=== PATIENT | female | born 1985 | race Caucasian/White ===

== ENCOUNTER 2019-03-25 05:21 | Emergency (ER) | payer OTHER ==
[2019-03-25] MEDS ORDERED: DEXAMETHASONE 10 MG/ML VIAL PO STA (05:38)
[2019-03-25] MEDS ORDERED: CHERRY SYRUP 10 ML UDC PO ONE (05:38)
--- NOTE | 2019-03-25 05:40 | ED Physician Documentation ---
PD HPI HEENT - Stated complaint Stated Complaint: SOA/SWOLLEN THROAT - Chief complaint Chief Complaint: Heent - History obtained from History obtained from: Patient - History of Present Illness Timing - onset: How many days ago (2) Timing - duration: Days (2) Timing - details: Gradual onset, Still present Location: Throat Improves: Medication Worsens: Swalllowing Associated symptoms: Congestion, Rhinorrhea, Swollen nodes, Headache, Cough Similar symptoms before: Diagnosis (tonsillitis) Recently seen: Not recently seen - Additional information Additional information: 33-year-old female with a history of enlarged tonsils has developed a sore throat and difficulty swallowing feels like she is choking on her tonsils and she is developed a low-grade fever with this. She has more minimal cough. Review of Systems Constitutional: reports: Fever, Chills, Myalgias, Fatigue Eyes: denies: Decreased vision Ears: denies: Ear pain Nose: reports: Rhinorrhea / runny nose, Congestion Throat: reports: Sore throat Cardiac: denies: Chest pain / pressure, Palpitations Respiratory: reports: Cough. denies: Dyspnea GI: denies: Vomiting PD PAST MEDICAL HISTORY - Present Medications Home Medications: Ambulatory Orders Medication Instructions Recorded Confirmed Amoxicillin 875 mg PO BID #20 tablet 03/25/19 Hydrocodone/Acetaminophen 1 - 2 each PO Q6H PRN #14 tablet 03/25/19 [Hydrocodon-Acetaminophen 5-325] - Allergies Allergies/Adverse Reactions: Allergies Allergy/AdvReac Type Severity Reaction Status Date / Time No Known Drug Allergies Allergy Verified 03/25/19 05:38 PD ED PE NORMAL - Vitals Vital signs reviewed: Yes (low grade fever tachycardia and hypertension ) - General General: No acute distress, Well developed/nourished - HEENT HEENT: Atraumatic, PERRL, EOMI, Other (The right TM is mildly inflammed the left is clear the tonsils are 2++ cyptic and with exudate. 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, No motor deficit, Normal speech Motor: Obeys Commands Verbal: Oriented - Psych Psych: Normal mood, Normal affect Results - Vitals Vitals: Vital Signs - 24 hr 03/25/19 05:28 Temperature 37.6 C H Heart Rate 118 H Respiratory 17 Rate Blood Pressure 121/81 H O2 Saturation 100 Oxygen O2 Source Room air - Labs Labs: Laboratory Tests 03/25/19 05:30 Group A Strep Rapid POSITIVE H PD MEDICAL DECISION MAKING - ED course Complexity details: reviewed results, re-evaluated patient, considered differential, d/w patient ED course: 33-year-old female with a sore throat markedly swollen tonsils has a rapid strep that is positive. She is administered Dex Methasone 10 mg orally and we will place her on some amoxicillin. She will need a note for 3 days for work. Departure - Departure Disposition: Home, Self Care Clinical Impression: Streptococcal tonsillopharyngitis Condition: Stable Instructions: ED Strep Pharyngitis Conf Follow-Up: ERIN BERRIOS [Primary Care Provider] - Prescriptions: Amoxicillin 875 mg PO BID #20 tablet Hydrocodone/Acetaminophen [Hydrocodon-Acetaminophen 5-325] 1 - 2 each PO Q6H PRN #14 tablet PRN Reason: pain Forms: Activity restrictions
[2019-03-25 06:39] VITALS: BP 96/64
== END 2019-03-25 06:39 | disposition home or self-care (01) ==
LOC: ED 05:21
DX: J03.00 Acute streptococcal tonsillitis, unspecified (principal)
CPT/HCPCS: 87430; 99283; 99284; A9270

== ENCOUNTER 2019-05-24 09:51 | Emergency (ER) | payer OTHER ==
[2019-05-24 12:35] VITALS: BP 121/80
[2019-05-24] MEDS ORDERED: IBUPROFEN 800 MG TABLET PO STA (12:58)
[2019-05-24] MEDS ORDERED: CYCLOBENZAPRINE 10 MG TABLET PO STA (12:58)
--- NOTE | 2019-05-24 12:58 | ED Physician Documentation ---
PD HPI BACK INJURY - Stated complaint Stated Complaint: BACK PX - History obtained from History obtained from: Patient, Family - History of Present Illness Location: Left, Other (mid/lower) Type of injury: Fall Where injury occurred: Home Timing - onset: Last night Timing - duration: Days (1) Timing - details: Gradual onset Pain level max: 6 Pain level now: 5 Quality: Pain, Aching Improved by: Rest Worsened by: Moving, Palpating Associated symptoms: No: Fever, Weakness, Numbness, Incontinent of urine, Unable to urinate, Hematuria, Incontinent of stool Contributing factors: No: Anticoagulated Recently seen: Not recently seen - Additional information Additional information: Patient states that she was in her slippers when she slid down the stairs, injuring her back on a metal gate. No numbness or tingling. No loss of bowel or bladder control. Patient did not take anything prior to coming in. 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: section - Present Medications Home Medications: Ambulatory Orders Medication Instructions Recorded Confirmed Amoxicillin 875 mg PO BID #20 tablet 03/25/19 Hydrocodone/Acetaminophen 1 - 2 each PO Q6H PRN #14 tablet 03/25/19 [Hydrocodon-Acetaminophen 5-325] Cyclobenzaprine [Flexeril] 10 mg PO TID PRN #20 tablet 05/24/19 Meloxicam [Mobic] 15 mg PO DAILY PRN #20 tablet 05/24/19 - Allergies Allergies/Adverse Reactions: Allergies Allergy/AdvReac Type Severity Reaction Status Date / Time No Known Drug Allergies Allergy Verified 05/24/19 10:10 - Social History Does the pt smoke?: No Smoking Status: Never smoker Does the pt drink ETOH?: No Does the pt have substance abuse?: No - Immunizations Immunizations are current?: Yes - POLST Patient has POLST: No PD ED PE NORMAL - Vitals Vital signs reviewed: Yes - General General: Alert and oriented X 3, No acute distress, Well developed/nourished - HEENT HEENT: Moist mucous membranes - Neck Neck: Supple, no meningeal sign, No bony TTP - Cardiac Cardiac: RRR - Respiratory Respiratory: No respiratory distress, Clear bilaterally - Abdomen Abdomen: Soft, Non tender, Non distended - Back Back: No spinal TTP, Other (No midline tenderness to palpation. No step-off or deformity. No crepitus. No ecchymosis. She is tender to palpation over the posterior aspect of the left posterior ribs, approximately 10,11 and 12.) - Derm Derm: Warm and dry - Extremities Extremities: Normal ROM s pain, Other (Normal bilateral lower extremity patellar and ankle jerk reflexes. Normal great toe extension bilaterally. no saddle anesthesia) - Neuro Neuro: Alert and oriented X 3, No motor deficit, No sensory deficit - Psych Psych: Normal mood, Normal affect Results - Vitals Vitals: Vital Signs - 24 hr 05/24/19 05/24/19 10:10 12:34 Temperature 37 C 36.7 C Heart Rate 98 88 Respiratory 17 18 Rate Blood Pressure 136/96 H 121/80 O2 Saturation 99 98 Oxygen O2 Source Room air PD MEDICAL DECISION MAKING - ED course Complexity details: re-evaluated patient, considered differential (No cauda equina, no spinal epidural abscess, no fracture, no aortic dissection or evidence of aneursym rupture), d/w patient, d/w family ED course: Patient appears to have tenderness over the left posterior ribs. Possible rib contusion versus fracture. We discussed x-rays, will hold at this time and will perform supportive care instead. We will see how she progresses. No evidence of internal injury including spleen or kidney injury. Abdomen is soft, nontender nondistended. No bruising. Ambulating well. Patient counseled regarding signs and symptoms for which I believe and urgent re-evaluation would be necessary. Patient with good understanding of and agreement to plan and is comfortable going home at this time This document was made in part using voice recognition software. While efforts are made to proofread this document, sound alike and grammatical errors may occur. Departure - Departure Disposition: 01 Home, Self Care Clinical Impression: Back contusion Qualifiers: Encounter type: initial encounter Laterality: left Qualified Code(s): S20.222A - Contusion of left back wall of thorax, initial encounter Condition: Good Instructions: ED Contusion Back Follow-Up: ERIN BERRIOS [Primary Care Provider] - Within 1 week Prescriptions: Cyclobenzaprine [Flexeril] 10 mg PO TID PRN #20 tablet PRN Reason: Spasms Meloxicam [Mobic] 15 mg PO DAILY PRN #20 tablet PRN Reason: pain Comments: Return if you worsen. Follow-up with your doctor for further care. If you are not proving as expected, we can perform x-rays at that time.Do not drive or operate heavy machinery while taking the Flexeril. Forms: Activity restrictions
== END 2019-05-24 13:10 | disposition home or self-care (01) ==
LOC: ED 09:51
DX: S20.222A Contusion of left back wall of thorax, initial encounter (principal); W10.8XXA Fall (on) (from) other stairs and steps, initial encounter; Y93.89 Activity, other specified; Y92.009 Unspecified place in unspecified non-institutional (private) residence as the place of occurrence of the external cause
CPT/HCPCS: 99282; 99284; A9270

== ENCOUNTER 2019-08-18 14:27 | Emergency (ER) | payer OTHER ==
[2019-08-18 14:47] LABS: BASOPHILS # (AUTO) 0.1 10^3/uL (0.0-0.1); BASOPHILS % (AUTO) 0.4 %; EOSINOPHILS % (AUTO) 0.1 %; HGB - HEMOGLOBIN 13.5 g/dL (12.0-16.0); LYMPHOCYTES # (AUTO) 1.5 10^3/uL (1.5-3.5); MEAN CORPUSCULAR HEMOGLOBIN 28.5 pg (27.0-31.0); MEAN CORPUSCULAR HGB CONC 32.6 g/dL (32.0-36.0); MEAN CORPUSCULAR VOLUME 87.5 fL (81.0-99.0); MEAN PLATELET VOLUME 8.9 fL (7.9-10.8); MONOCYTES # (AUTO) 0.8 10^3/uL (0.0-1.0); MONOCYTES % (AUTO) 5.2 %; NEUTROPHILS # (AUTO) 12.9 10^3/uL (1.5-6.6); NEUTROPHILS % (AUTO) 83.8 %; PLT - PLATELET COUNT 482 10^3/uL (130-450); RED BLOOD COUNT 4.73 10^6/uL (4.20-5.40); RED CELL DISTRIBUTION WIDTH 13.1 % (12.0-15.0); WHITE BLOOD COUNT 15.4 x10^3/uL (4.8-10.8)
[2019-08-18 15:01] LABS: ALBUMIN 4.5 g/dL (3.2-5.5); CALCIUM 9.9 mg/dL (8.5-10.3); CREATININE 0.5 mg/dL (0.4-1.0); TOTAL PROTEIN 8.9 g/dL (6.7-8.2)
[2019-08-18] MEDS ORDERED: LIDOCAINE VISCOUS 2% 100 ML BOTTLE MM STA (15:23)
[2019-08-18] MEDS ORDERED: MAG HYDROX/AL HYDROX/SIMETH 30 ML UDC PO STA ×2 (15:25→17:09)
[2019-08-18 15:28] LABS: BILIRUBIN,URINE NEGATIVE (NEGATIVE); GLUCOSE, URINE (UA) NEGATIVE (NEGATIVE); KETONES,URINE (UA) 15 mg/dL (NEGATIVE); LEUKOCYTE ESTERASE, URINE NEGATIVE (NEGATIVE); NITRITE,URINE NEGATIVE (NEGATIVE); OCCULT BLOOD,URINE TRACE-LYSE (NEGATIVE); PROTEIN,URINE NEGATIVE (NEGATIVE); UROBILINOGEN,URINE 0.2 (NORMAL) E.U./dL (NORMAL)
[2019-08-18] MEDS ORDERED: LIDOCAINE VISCOUS 2% 15 ML UDC MM STA ×2 (15:34→17:08)
[2019-08-18 15:35] LABS: CLARITY,URINE CLEAR (CLEAR)
[2019-08-18] MEDS ORDERED: PANTOPRAZOLE 40 MG VIAL IV STA (15:41)
[2019-08-18 15:44] LABS: HCG UR QUAL NEGATIVE
--- NOTE | 2019-08-18 15:47 | ED Physician Documentation ---
PD HPI ABD PAIN - Stated complaint Stated Complaint: MID ABD PX, N/V - Chief complaint Chief Complaint: Abd Pain - History obtained from History obtained from: Patient (34-year-old female comes in today with chief complaint of unresolved recurring epigastric pain/heartburn for one week with nausea and vomiting for 2 days. She has continued to take her omeprazole daily as prescribed, taking Tums as well with little to no relief. Pain is worse after she eats and then resolves shortly thereafter within an hour. Her last food intake was roughly 24 hours ago, she still has the pain in the epigastric region. Last bowel movement was this morning, she states it was normal though less volume. She does have a positive past medical history of having pretty severe heartburn, which she is being followed by her PCP for this.) Review of Systems Constitutional: reports: Chills. denies: Fever Eyes: reports: Reviewed and negative Ears: reports: Reviewed and negative Nose: reports: Reviewed and negative Throat: reports: Reviewed and negative Cardiac: denies: Chest pain / pressure, Palpitations Respiratory: denies: Dyspnea, Cough, Wheezing GI: reports: Abdominal Pain, Nausea, Vomiting, Diarrhea (Roughly 1 week ago). 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 - Present Medications Home Medications: Ambulatory Orders Medication Instructions Recorded Confirmed Amoxicillin 875 mg PO BID #20 tablet 03/25/19 Hydrocodone/Acetaminophen 1 - 2 each PO Q6H PRN #14 tablet 03/25/19 [Hydrocodon-Acetaminophen 5-325] Cyclobenzaprine [Flexeril] 10 mg PO TID PRN #20 tablet 05/24/19 Meloxicam [Mobic] 15 mg PO DAILY PRN #20 tablet 05/24/19 - Allergies Allergies/Adverse Reactions: Allergies Allergy/AdvReac Type Severity Reaction Status Date / Time No Known Drug Allergies Allergy Verified 08/18/19 14:31 - Social History Does the pt smoke?: No Smoking Status: Never smoker Does the pt drink ETOH?: No Does the pt have substance abuse?: No - Immunizations Immunizations are current?: Yes - POLST Patient has POLST: No PD ED PE NORMAL - General General: Alert and oriented X 3, Well developed/nourished - HEENT HEENT: Atraumatic, PERRL, EOMI, Ears normal, Moist mucous membranes, Pharynx benign - Neck Neck: No adenopathy - Cardiac Cardiac: RRR, No murmur - Respiratory Respiratory: No respiratory distress, Clear bilaterally - Abdomen Abdomen: Soft, Non distended, No organomegaly, Other (Hypoactive bowel sounds) - Back Back: No CVA TTP - Derm Derm: Normal color, Warm and dry, No rash PD ED PE EXPANDED - Abdomen Abdomen: Decreased BS, Epigastric. No: Distended, Rebound, Guarding, Mass, Hepatomegaly, Pulsatile Results - Vitals Vitals: Vital Signs - 24 hr 08/18/19 08/18/19 14:31 14:35 Temperature 36.5 C 36.8 C Heart Rate 116 H 89 Respiratory 14 16 Rate Blood Pressure 136/83 H 128/82 H O2 Saturation 98 99 Oxygen O2 Source Room air - Labs Labs: Laboratory Tests 08/18/19 08/18/19 08/18/19 14:35 14:35 15:20 WBC 15.4 H RBC 4.73 Hgb 13.5 Hct 41.4 MCV 87.5 MCH 28.5 MCHC 32.6 RDW 13.1 Plt Count 482 H MPV 8.9 Neut # (Auto) 12.9 H Lymph # (Auto) 1.5 Petroleum # (Auto) 0.8 Eos # (Auto) 0.0 Baso # (Auto) 0.1 Absolute Nucleated RBC 0.00 Nucleated RBC % 0.0 Sodium 136 Potassium 3.8 Chloride 98 L Carbon Dioxide 26 Anion Gap 12.0 BUN 8 Creatinine 0.5 Estimated GFR (MDRD) 140 Glucose 110 H Calcium 9.9 Total Bilirubin 1.0 AST 18 ALT 21 Alkaline Phosphatase 74 Total Protein 8.9 H Albumin 4.5 Globulin 4.4 H Albumin/Globulin Ratio 1.0 Lipase 24 Urine Color YELLOW Urine Clarity CLEAR Urine pH 6.0 Ur Specific [place] 1.020 Urine Protein NEGATIVE Urine Glucose (UA) NEGATIVE Urine Ketones 15 H Urine Occult Blood TRACE-LYSE Urine Nitrite NEGATIVE Urine Bilirubin NEGATIVE Urine Urobilinogen 0.2 (NORMAL) Ur Leukocyte Esterase NEGATIVE Ur Microscopic Review NOT INDICATED Urine Culture Comments NOT INDICATED Urine HCG, Qual 08/18/19 15:20 WBC RBC Hgb Hct MCV MCH MCHC RDW Plt Count MPV Neut # (Auto) Lymph # (Auto) Petroleum # (Auto) Eos # (Auto) Baso # (Auto) Absolute Nucleated RBC Nucleated RBC % Sodium Potassium Chloride Carbon Dioxide Anion Gap BUN Creatinine Estimated GFR (MDRD) Glucose Calcium Total Bilirubin AST ALT Alkaline Phosphatase Total Protein Albumin Globulin Albumin/Globulin Ratio Lipase Urine Color Urine Clarity Urine pH Ur Specific [place] 1.020 Urine Protein Urine Glucose (UA) Urine Ketones Urine Occult Blood Urine Nitrite Urine Bilirubin Urine Urobilinogen Ur Leukocyte Esterase Ur Microscopic Review Urine Culture Comments Urine HCG, Qual NEGATIVE PD MEDICAL DECISION MAKING - ED course Complexity details: reviewed results (Patient is gastric pain improved after the second dose of viscous lidocaine/Maalox/Carafate.), re-evaluated patient, d/w patient Departure - Departure Disposition: 01 Home, Self Care Clinical Impression: Gastroesophageal reflux disease Qualifiers: Esophagitis presence: esophagitis presence not specified Qualified Code(s): K21.9 - Gastro-esophageal reflux disease without esophagitis Condition: Good Instructions: ED GERD, ED Gastritis Comments: Medications we gave you today in the ER that helped him the most with the Maalox, and the Carafate. He can pick these up at the store, and take as directed. I also want you to take your omeprazole prescription once in the morning and once in the evening. I want you to follow-up with your PCP within a week for further evaluation to make sure that you continue to improve. Stick with a bland diet for the next day or 2, and slowly reintroduce foods to see if there are any triggering foods causing his pain. If you start to vomit blood or have dark tarry stools you may try to get into see your PCP right away or you may return to the ER for further evaluation.
[2019-08-18] MEDS ORDERED: SUCRALFATE 1 GM/10 ML UDC PO STA (17:06)
[2019-08-18 19:20] VITALS: BP 124/78
== END 2019-08-18 19:25 | disposition home or self-care (01) ==
LOC: ED 14:27
DX: K21.9 Gastro-esophageal reflux disease without esophagitis (principal)
CPT/HCPCS: 36415; 80053; 81003; 81025; 83690; 85025; 96374; 99283; 99284; A9270; 81001; 87086

== ENCOUNTER 2019-08-20 12:26 | Day surgery (SDC) | payer OTHER ==
[2019-08-20] MEDS ORDERED: ONDANSETRON 4 MG/2 ML VIAL IVP STA ×2 (12:51→20:04)
[2019-08-20] MEDS ORDERED: SODIUM CHLORIDE 0.9% 1,000 ML IV ONE (12:51)
[2019-08-20] MEDS ORDERED: HYDROmorphone 1 MG/ML SYRINGE IVP STA (12:51)
--- NOTE | 2019-08-20 12:54 | ED Physician Documentation ---
History of Present Illness - Stated complaint Stated Complaint: R SIDE PX - Chief complaint Chief Complaint: Abd Pain - History obtained from History obtained from: Patient - History of Present Illness Timing: How many days ago (2) Pain level max: 8 Pain level now: 8 Improved by: rest Worsened by: moving, breathing, eating - Additonal information Additional information: 34-year-old female presents to the emergency department stating that she has had right upper quadrant abdominal pain and epigastric pain for the past 2 days. Seen here 2 days ago for same, diagnosed with possible GERD and sent home. Since that time she has had nausea and continuous right upper quadrant pain. States hard to take a deep breath now. Worse with palpation and movement. Denies any possibility of . She is not breast-feeding or trying to become . 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 - Present Medications Home Medications: Ambulatory Orders Medication Instructions Recorded Confirmed Amoxicillin 875 mg PO BID #20 tablet 03/25/19 Hydrocodone/Acetaminophen 1 - 2 each PO Q6H PRN #14 tablet 03/25/19 [Hydrocodon-Acetaminophen 5-325] Cyclobenzaprine [Flexeril] 10 mg PO TID PRN #20 tablet 05/24/19 Meloxicam [Mobic] 15 mg PO DAILY PRN #20 tablet 05/24/19 - Allergies Allergies/Adverse Reactions: Allergies Allergy/AdvReac Type Severity Reaction Status Date / Time No Known Drug Allergies Allergy Verified 08/18/19 14:31 - Social History Does the pt smoke?: No Smoking Status: Never smoker Does the pt drink ETOH?: No Does the pt have substance abuse?: No - Immunizations Immunizations are current?: Yes - POLST Patient has POLST: No PD ED PE NORMAL - Vitals Vital signs reviewed: Yes - General General: Alert and oriented X 3, No acute distress - HEENT HEENT: Moist mucous membranes - Neck Neck: Supple, no meningeal sign - Cardiac Cardiac: RRR - Respiratory Respiratory: No respiratory distress, Clear bilaterally - Abdomen Abdomen: Other (Tender to palpation right upper quadrant. Positive Ta sign.) - Back Back: No CVA TTP - Derm Derm: Warm and dry, No rash - Extremities Extremities: No edema - Neuro Neuro: Alert and oriented X 3 - Psych Psych: Normal mood, Normal affect Results - Vitals Vitals: Vital Signs - 24 hr 08/20/19 08/20/19 08/20/19 12:31 14:00 16:14 Temperature 36.9 C 36.9 C Heart Rate 118 H 90 104 H Respiratory 16 16 16 Rate Blood Pressure 119/78 117/75 117/84 H O2 Saturation 100 98 100 Oxygen O2 Source Room air - Labs Labs: Laboratory Tests 08/20/19 08/20/19 08/20/19 12:45 12:45 12:45 WBC 13.3 H RBC 4.55 Hgb 13.0 Hct 40.3 MCV 88.6 MCH 28.6 MCHC 32.3 RDW 13.1 Plt Count 481 H MPV 9.0 Neut # (Auto) 10.0 H Lymph # (Auto) 2.1 [place] # (Auto) 0.9 Eos # (Auto) 0.1 Baso # (Auto) 0.1 Absolute Nucleated RBC 0.00 Nucleated RBC % 0.0 Sodium 133 L Potassium 3.2 L Chloride 95 L Carbon Dioxide 27 Anion Gap 11.0 BUN 14 Creatinine 0.5 Estimated GFR (MDRD) 140 Glucose 93 Calcium 9.2 Total Bilirubin 1.1 H AST 29 ALT 26 Alkaline Phosphatase 78 Total Protein 8.6 H Albumin 4.3 Globulin 4.3 H Albumin/Globulin Ratio 1.0 Lipase 32 Urine Color YELLOW Urine Clarity CLEAR Urine pH 6.5 Ur Specific [place] 1.010 Urine Protein NEGATIVE Urine Glucose (UA) NEGATIVE Urine Ketones NEGATIVE Urine Occult Blood TRACE-INTA Urine Nitrite NEGATIVE Urine Bilirubin NEGATIVE Urine Urobilinogen 0.2 (NORMAL) Ur Leukocyte Esterase NEGATIVE Ur Microscopic Review NOT INDICATED Urine Culture Comments NOT INDICATED - Rads (name of study) RUQ US Radiology: Prelim report reviewed, EMP read contemporaneously, See rad report (1. Gallstones and chronic cholecystitis. 2. Negative for biliary obstruction. 3. Liver steatosis. ) PD MEDICAL DECISION MAKING - ED course Complexity details: reviewed results, re-evaluated patient, considered different ial, d/w patient, d/w continuous improvement consultant (D/w Dr. Wiley (surgery @[id number]) will plan on OR. ) ED course: Patient with acute on chronic cholecystitis. Elevated white blood cell count. Continuous pain and nausea. Gallstone lodged in the gallbladder neck. Discussed the case with general surgery, Dr. Wiley who contacted the OR and because of the coronavirus they want to see if this is an elective case or not. CNO was contacted and the OR will take the patient to the OR if the surgeon decides it is necessary. Recontacted Dr. Wiley at 1820 and he will come evaluate the patient. 2nd dose of zosyn given at 1830. Pt signed out to Dr. Catalan awaiting final dispo. Departure - Departure Disposition: ED Transfer to [facility] Clinical Impression: Acute cholecystitis, Gallstone (impacted) Condition: Stable
[2019-08-20] MEDS ORDERED: PIPERACILLIN/TAZOBACTAM 3.375 GM in SODIUM CHLORIDE 0.9% MINIBAG 100 ML IV STA ×2 (12:56→18:17)
[2019-08-20 12:57] LABS: BASOPHILS # (AUTO) 0.1 10^3/uL (0.0-0.1); BASOPHILS % (AUTO) 0.6 %; EOSINOPHILS # (AUTO) 0.1 10^3/uL (0.0-0.7); EOSINOPHILS % (AUTO) 1.1 %; LYMPHOCYTES # (AUTO) 2.1 10^3/uL (1.5-3.5); LYMPHOCYTES % (AUTO) 15.6 %; MEAN CORPUSCULAR HEMOGLOBIN 28.6 pg (27.0-31.0); MEAN CORPUSCULAR HGB CONC 32.3 g/dL (32.0-36.0); MEAN CORPUSCULAR VOLUME 88.6 fL (81.0-99.0); MONOCYTES # (AUTO) 0.9 10^3/uL (0.0-1.0); NEUTROPHILS % (AUTO) 75.1 %; PLT - PLATELET COUNT 481 10^3/uL (130-450); RED BLOOD COUNT 4.55 10^6/uL (4.20-5.40); RED CELL DISTRIBUTION WIDTH 13.1 % (12.0-15.0); WHITE BLOOD COUNT 13.3 x10^3/uL (4.8-10.8)
[2019-08-20 13:00] LABS: BILIRUBIN,URINE NEGATIVE (NEGATIVE); GLUCOSE, URINE (UA) NEGATIVE (NEGATIVE); KETONES,URINE (UA) NEGATIVE (NEGATIVE); LEUKOCYTE ESTERASE, URINE NEGATIVE (NEGATIVE); NITRITE,URINE NEGATIVE (NEGATIVE); OCCULT BLOOD,URINE TRACE-INTA (NEGATIVE); PH,URINE 6.5 PH (5.0-7.5); PROTEIN,URINE NEGATIVE (NEGATIVE); UROBILINOGEN,URINE 0.2 (NORMAL) E.U./dL (NORMAL)
[2019-08-20 13:04] LABS: CLARITY,URINE CLEAR (CLEAR)
[2019-08-20 13:09] LABS: ALBUMIN 4.3 g/dL (3.2-5.5); BILIRUBIN,TOTAL 1.1 mg/dL (0.2-1.0); CALCIUM 9.2 mg/dL (8.5-10.3); CREATININE 0.5 mg/dL (0.4-1.0); TOTAL PROTEIN 8.6 g/dL (6.7-8.2)
[2019-08-20] MEDS ORDERED: fentaNYL 100 MCG/2 ML VIAL IVP STA ×2 (13:51→18:16)
--- NOTE | 2019-08-20 16:01 | Ultrasound Report ---
Reason: RUQ pain Procedure Date: 08/20/2019 Accession Number: [id number] / [id number] Procedure: US - Abdomen Limited CPT Code: Final Report FULL RESULT: EXAM: ABDOMEN ULTRASOUND LIMITED, RIGHT UPPER QUADRANT EXAM DATE: 08/20/2019 03:48 PM. CLINICAL HISTORY: Right upper quadrant pain radiating to the back since 08/19/2019. COMPARISON: None. TECHNIQUE: Real-time scanning was performed with static images obtained. FINDINGS: Liver: Increased liver echogenicity is consistent with fatty infiltration. 15.6 cm. Main portal vein flow: Hepatopetal. Gallbladder: Gallstone 1 cm stuck at the gallbladder neck. Mobile 1.3 cm gallstone. Gallbladder wall thickness 8 mm. Gallbladder wall hyperemia. Probable 9 mm gallstone gallbladder fundus. Negative for pericholecystic fluid. 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 Probable diffuse gallbladder wall R[place]ky sinuses. There is no sonographic Ta's sign elicited. Biliary System: CBD measures 5.5 mm. No intrahepatic or extrahepatic ductal dilatation. Other: Visualized pancreas is negative for focal mass or pancreatic duct dilatation. Right kidney is negative for hydronephrosis. IMPRESSION: 1. Gallstones and chronic cholecystitis. 2. Negative for biliary obstruction. 3. Liver steatosis. RADIA
--- NOTE | 2019-08-20 19:37 | HISTORY & PHYSICAL EXAMINATION ---
Chief Complaint - Chief Complaint Chief Complaint: right upper quadrant pain x 3 weeks. 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 : positive: None HEENT: positive: None Psych: positive: None Musculoskeletal: positive: None Derm: positive: None MRSA Hx?: No - Past Surgical History /FINANCIAL INSTITUTION TREASURER: positive: section Social & Family Hx - Social History Does the pt smoke?: No Smoking Status: Never smoker Does the pt drink ETOH?: No Does the pt have substance abuse?: No - POLST Patient has POLST: No Meds/Allgy - Home Medications Home Medications: Ambulatory Orders Medication Instructions Recorded Confirmed Amoxicillin 875 mg PO BID #20 tablet 03/25/19 Hydrocodone/Acetaminophen 1 - 2 each PO Q6H PRN #14 tablet 03/25/19 [Hydrocodon-Acetaminophen 5-325] Cyclobenzaprine [Flexeril] 10 mg PO TID PRN #20 tablet 05/24/19 Meloxicam [Mobic] 15 mg PO DAILY PRN #20 tablet 05/24/19 - Allergies Allergies/Adverse Reactions: Allergies Allergy/AdvReac Type Severity Reaction Status Date / Time No Known Drug Allergies Allergy Verified 08/18/19 14:31 Review of Systems - Other Findings Other Findings: 10 pt ros otherwise neg Exam - Vital Signs Vital Signs: Vital Signs x48h Temp Pulse Resp BP Pulse Ox 08/20/19 18:21 72 16 114/81 H 08/20/19 16:14 36.9 C 104 H 16 117/84 H 100 08/20/19 14:00 90 16 117/75 98 08/20/19 12:31 36.9 C 118 H 16 119/78 100 - Physical Exam General Appearance: positive: No acute distress Eyes Bilateral: positive: Normal inspection, PERRL, EOMI Neck: positive: Nml inspection, No JVD, Trachea midline Respiratory: positive: No respiratory distress, Breath sounds nml Cardiovascular: positive: Regular rate & rhythm Abdomen: positive: Tenderness (ruq tenderness) Skin: positive: Color nml Extremities: positive: No pedal edema Neurologic/Psychiatric: positive: Oriented x3 Results - Lab Results Fish Bones: 08/20/19 12:45 08/20/19 12:45 Other Lab Results: Lab Results x24hrs 08/20/19 08/20/19 08/20/19 Range/Units 12:45 12:45 12:45 WBC 13.3 H (4.8-10.8) x10^3/uL RBC 4.55 (4.20-5.40) 10^6/uL Hgb 13.0 (12.0-16.0) g/dL Hct 40.3 (37.0-47.0) % MCV 88.6 (81.0-99.0) fL MCH 28.6 (27.0-31.0) pg MCHC 32.3 (32.0-36.0) g/dL RDW 13.1 (12.0-15.0) % Plt Count 481 H (130-450) 10^3/uL MPV 9.0 (7.9-10.8) fL Neut # (Auto) 10.0 H (1.5-6.6) 10^3/uL Lymph # (Auto) 2.1 (1.5-3.5) 10^3/uL [place] # (Auto) 0.9 (0.0-1.0) 10^3/uL Eos # (Auto) 0.1 (0.0-0.7) 10^3/uL Baso # (Auto) 0.1 (0.0-0.1) 10^3/uL Absolute Nucleated RBC 0.00 x10^3/uL Nucleated RBC % 0.0 /100WBC Sodium 133 L (135-145) mmol/L Potassium 3.2 L (3.5-5.0) mmol/L Chloride 95 L (101-111) mmol/L Carbon Dioxide 27 (21-32) mmol/L Anion Gap 11.0 (6-13) BUN 14 (6-20) mg/dL Creatinine 0.5 (0.4-1.0) mg/dL Estimated GFR (MDRD) 140 (>89) Glucose 93 (70-100) mg/dL Calcium 9.2 (8.5-10.3) mg/dL Total Bilirubin 1.1 H (0.2-1.0) mg/dL AST 29 (10-42) IU/L ALT 26 (10-60) IU/L Alkaline Phosphatase 78 (42-121) IU/L Total Protein 8.6 H (6.7-8.2) g/dL Albumin 4.3 (3.2-5.5) g/dL Globulin 4.3 H (2.1-4.2) g/dL Albumin/Globulin Ratio 1.0 (1.0-2.2) Lipase 32 (22-51) U/L Urine Color YELLOW Urine Clarity CLEAR (CLEAR) Urine pH 6.5 (5.0-7.5) PH Ur Specific [place] 1.010 (1.002-1.030) Urine Protein NEGATIVE (NEGATIVE) mg/dL Urine Glucose (UA) NEGATIVE (NEGATIVE) mg/dL Urine Ketones NEGATIVE (NEGATIVE) mg/dL Urine Occult Blood TRACE-INTA (NEGATIVE) Urine Nitrite NEGATIVE (NEGATIVE) Urine Bilirubin NEGATIVE (NEGATIVE) Urine Urobilinogen 0.2 (NORMAL) (NORMAL) E.U./dL Ur Leukocyte Esterase NEGATIVE (NEGATIVE) Ur Microscopic Review NOT INDICATED Urine Culture Comments NOT INDICATED Impression/Plan - Problem List Problem List: classic chronic cholecystitis x 3 weeks and more significant pain with obstructed inflamed gallbladder last 2 days. n/v last 2 days. not improving Assessment/Plan - Assessment/Plan Assessment: cholecystitis plan lap yobani parq held and consent obtained Plan: lap yobani. parq held and consent obtained
[2019-08-20] MEDS ORDERED: SODIUM CHLORIDE FLUSH 0.9% 10 ML SYRINGE IVP PRN (19:58)
[2019-08-20] MEDS ORDERED: ceFAZolin 2 GM in SODIUM CHLORIDE 0.9% 100ML 100 ML IV ONE (19:58)
[2019-08-20] MEDS ORDERED: ceFAZolin 2 GM in SODIUM CHLORIDE 0.9% 100ML 100 ML IV STA (20:21)
[2019-08-20] MEDS ORDERED: ONDANSETRON 4 MG/2 ML VIAL IVP PRN (20:22)
--- NOTE | 2019-08-20 20:23 | ED Physician Documentation ---
ED Addendum - Addendum Addendum: 08/20/19 20:23 Patient signed out to me by Dr. Viramontes, briefly 34-year-old woman with cholecystitis. Being seen by the surgeon pending the OR. Surgeon saw her and plans to take her to the OR in the morning. I wrote for her scheduled and as needed meds overnight.
[2019-08-20] MEDS: LACTATED RINGERS 1,000 ML IV SCH (20:33)
[2019-08-20] MEDS: fentaNYL 100 MCG/2 ML VIAL IVP PRN (20:42)
[2019-08-21] MEDS: fentaNYL 100 MCG/2 ML VIAL IVP PRN ×3 (00:55→05:42)
[2019-08-21] MEDS ORDERED: SODIUM CHLORIDE FLUSH 0.9% 10 ML SYRINGE IVP SCH (01:00)
[2019-08-21] MEDS: LACTATED RINGERS 1,000 ML IV SCH (01:23)
--- NOTE | 2019-08-21 07:37 | ANESTHESIA ---
Pre-Anesthesia VS, & Labs - Diagnosis Acute cholecystitis - Procedure Laparoscopic cholecystectomy Vital Signs: Temp Pulse Resp BP Pulse Ox 36.7 C 84 14 105/93 H 98 08/21/19 00:50 08/21/19 07:10 08/21/19 07:10 08/21/19 07:10 08/21/19 07:10 Height 5 ft 4 in Weight (kg) 74.843 kg Body Mass Index 28.3 - NPO >8 hours - Is Patient ?: No - Lab Results Current Lab Results: Laboratory Tests 08/20/19 12:45: Sodium 133 L, Potassium 3.2 L, Chloride 95 L, Carbon Dioxide 27, Anion Gap 11.0, BUN 14, Creatinine 0.5, Estimated GFR (MDRD) 140, Glucose 93, Calcium 9.2, Total Bilirubin 1.1 H, AST 29, ALT 26, Alkaline Phosphatase 78, Total Protein 8.6 H, Albumin 4.3, Globulin 4.3 H, Albumin/Globulin Ratio 1.0, Lipase 32 08/20/19 12:45: WBC 13.3 H, RBC 4.55, Hgb 13.0, Hct 40.3, MCV 88.6, MCH 28.6, MCHC 32.3, RDW 13.1, Plt Count 481 H, MPV 9.0, Neut # (Auto) 10.0 H, Lymph # (Auto) 2.1, [place] # (Auto) 0.9, Eos # (Auto) 0.1, Baso # (Auto) 0.1, Absolute Nucleated RBC 0.00, Nucleated RBC % 0.0 Lab results reviewed: Yes Fish Bones: 08/20/19 12:45 08/20/19 12:45 Home Medications and Allergies Active Medications Fentanyl (Fentanyl) 75 mcg IVP Q2H PRN PRN Reason: PAIN Last Admin: 08/21/19 05:42 Dose: 75 mcg Lactated Ringer's (Lr) 1,000 mls @ 125 mls/hr IV .Q8H FLORENTIN Last Admin: 08/21/19 01:23 Dose: 125 mls/hr Ondansetron HCl (Zofran Inj) 4 mg IVP Q6H PRN PRN Reason: Nausea / Vomiting Last Admin: 08/21/19 01:04 Dose: 4 mg Sodium Chloride (Normal Saline Flush 0.9%) 10 ml IVP 0100,0900,1700 FLORENTIN Last Admin: 08/21/19 04:00 Dose: Not Given Sodium Chloride (Normal Saline Flush 0.9%) 10 ml IVP PRN PRN PRN Reason: NEEDED PER PROVIDER ORDERS Allergies/Adverse Reactions: Allergies Allergy/AdvReac Type Severity Reaction Status Date / Time No Known Drug Allergies Allergy Verified 08/18/19 14:31 Anes History & Medical History - Anesthetic History Anesthesia Complications: reports: No previous complications Family history of Anesthesia Complications: Denies Family history of Malignant Hyperthermia: Denies - Medical History Cardiovascular: reports: None Pulmonary: reports: None Gastrointestinal: reports: None, GERD Urinary: reports: None Neuro: reports: None Musculoskeletal: reports: None Endocrine/Autoimmune: reports: None Blood Disorders: reports: None Skin: reports: None Smoking Status: Never smoker - Surgical History Gynecologic: section Exam General: Alert, Oriented x3, Cooperative Dental: WNL Mouth Openin Fingerbreadth Neck Mobility: Normal Mallampati classification: II Thyromental Distance: 4-6 cm Respiratory: Lungs clear, Normal breath sounds Cardiovascular: Regular rate Neurological: Normal speech Mental/Cognitive Status: Alert/Oriented X3, Normal for patient Cognitive Status: Within normal limits Plan Anesthesia Type: General Consent for Procedure(s) Verified and Reviewed: Yes Code Status: Attempt Resuscitation ASA classification: 2-Mild systemic disease Is this case an emergency?: No
[2019-08-21] MEDS ORDERED: BUPIVACAINE 0.25% PF 30 ML VIAL ONE ×2 (07:51→10:03)
[2019-08-21] MEDS ORDERED: LIDOCAINE-MPF 2% 5 ML VIAL IM ONE (08:11)
[2019-08-21] MEDS ORDERED: ROCURONIUM 50 MG/5 ML VIAL IVP ONE (08:11)
[2019-08-21] MEDS ORDERED: GLYCOPYRROLATE 1 MG/5 ML VIAL IVP ONE (08:11)
[2019-08-21] MEDS ORDERED: PROPOFOL 200 MG/20 ML VIAL IVP ONE (08:11)
[2019-08-21] MEDS ORDERED: fentaNYL 100 MCG/2 ML VIAL IVP ONE (08:11)
[2019-08-21] MEDS ORDERED: MIDAZOLAM 2 MG/2 ML VIAL IVP ONE (08:11)
[2019-08-21] MEDS ORDERED: DEXAMETHASONE 4 MG/ML VIAL IVP ONE (08:11)
[2019-08-21] MEDS ORDERED: NEOSTIGMINE 1 MG/1 ML 10 ML MDV IVP ONE (08:11)
[2019-08-21] MEDS ORDERED: BUPIVACAINE 0.25% PF 30 ML VIAL SUBQ ONE ×2 (08:56)
[2019-08-21] MEDS ORDERED: LACTATED RINGERS 1,000 ML IV ONE (09:04)
[2019-08-21] MEDS ORDERED: ONDANSETRON 4 MG/2 ML VIAL IVP PRN (10:29)
[2019-08-21] MEDS ORDERED: IBUPROFEN 600 MG TABLET PO PRN (10:29)
[2019-08-21] MEDS ORDERED: HYDROcod/ACETAM 5/325 MG TABLET PO PRN (10:29)
[2019-08-21] MEDS ORDERED: ACETAMINOPHEN 325 MG TABLET PO PRN (10:29)
[2019-08-21] MEDS ORDERED: oxyCODONE 5 MG TABLET PO PRN (10:29)
[2019-08-21] MEDS: fentaNYL 100 MCG/2 ML VIAL ONE ×2 (10:50→11:08)
[2019-08-21] MEDS ORDERED: ONDANSETRON 4 MG/2 ML VIAL ONE (10:58)
[2019-08-21] MEDS ORDERED: oxyCODONE 5 MG TABLET ONE (11:11)
[2019-08-21 12:19] VITALS: BP 121/84
--- NOTE | 2019-08-21 12:44 | OPERATIVE REPORT ---
DATE OF SERVICE: 08/21/2019 Physician: Edmundo Wiley MD PREOPERATIVE DIAGNOSIS: Acute on chronic cholecystitis. POSTOPERATIVE DIAGNOSIS: Acute on chronic cholecystitis with a posterior abscess. PROCEDURE PERFORMED: Laparoscopic cholecystectomy. SURGEON: Edmundo Wiley MD CIVIL LABORATORY TECHNICIAN: None. ANESTHESIA: General endotracheal anesthesia, local anesthesia with Marcaine. COMPLICATIONS: None. SPECIMEN: Gallbladder. ESTIMATED BLOOD LOSS: 25 mL DRAINS: None. INDICATIONS FOR PROCEDURE: The patient is a previously well 34-year-old. She has had upper abdomina l discomfort and indigestion type symptoms for the last 3 weeks. Three days ago, she became acutely worse. She had significant discomfort taking a deep breath, low-grade fevers, nausea and vomiting. She has been to the emergency department twice. White count is 13 and ultrasound confirming cholecys titis. She is admitted. Surgery was recommended and consent obtained after a full PARQ. DESCRIPTION OF PROCEDURE: The patient was properly identified, brought to the operating room and rosana otf in supine position. She voided prior to surgery. General endotracheal anesthesia was induced. Sequential compression devices were placed. She was previously given IV antibiotics. She was preppe d and draped in a sterile fashion, and given preoperative antibiotics. Local anesthetic was given to incision areas. An infraumbilical incision was made. Dissection proceeded down to the fascia. The fascia was incised, lifted upwards, and the abdomen entered with a Veress needle. CO2 was insufflat ed to a pressure of 15. An 11 mm trocar was placed, followed by a 30-degree scope. There was no gil dence of injury from Veress needle or trocar placement. Under direct vision, two 5 mm trocars were p laced in the right upper quadrant, and a 10 mm trocar was placed in the epigastrium. Her liver appea red healthy. The gallbladder was obviously very tense and inflamed, with adherent omentum. The gall bladder was aspirated. The gallbladder was then retracted anterior. The omentum was carefully michelle d down. The gallbladder was further mobilized and the infundibulum identified. The infundibulum was retracted right, lateral and caudad. Nearly necrotic adipose tissue was carefully peeled away from the infundibulum of the gallbladder, revealing a cystic duct and cystic artery. She had 2 small cyst ic artery branches, which were separately clipped at the gallbladder x2, slightly proximal. A larger bare cystic plate area was carefully developed with a Kittner. She had an obstructing stone at the neck of the gallbladder. The cystic duct was clipped at the gallbladder x2, slightly proximal and sh arply divided. The gallbladder was further mobilized off from the bed of the liver with hook cautery . She had a posterior wall small abscess, which was drained. The gallbladder was placed in an Endo Catch bag and brought out through the epigastric trocar site. This site had to be enlarged to approx imately 4 cm, to allow extraction of the very thickened, inflamed gallbladder. The abdomen was thoro ughly irrigated. Hemostasis was ensured. Clips were secured. Trocars were removed under direct vis ion and CO2 evacuated. Fascia at the infraumbilical and epigastric site were both closed with runnin g 0 Vicryl suture. Subcutaneous tissue was irrigated and skin closed with buried interrupted 4-0 Mon ocryl. Dressings were applied. She tolerated the procedure well. TD: 08/21/2019 11:13
== END 2019-08-21 08:11 | disposition home or self-care (01) ==
LOC: ED 12:26 → SDS 08-21 08:10 → ED 08-21 08:20 → SDS 08-21 08:30
PROVIDERS: ATTEND Surgery
PROC: 0FT44ZZ Resection of Gallbladder, Percutaneous Endoscopic Approach (ICD-10-PCS; principal; 2019-08-20)
DX: K80.12 Calculus of gallbladder with acute and chronic cholecystitis without obstruction (principal); K21.9 Gastro-esophageal reflux disease without esophagitis
CPT/HCPCS: 36415; 47562; 76705; 80053; 81003; 83690; 85025; 88304; 96365; 96366; 96367; 96375; 96376; 99284; 99285; A9270; J1170; J7120; 81001; 87086

== ENCOUNTER 2020-05-08 09:49 | Outpatient (CLI) | payer OTHER ==
--- NOTE | 2020-05-08 10:59 | SLEEP CARE CONSULTATION ---
Information from patient questionnaire entered by Olga Leone. I have reviewed and concur with the information entered by Olga Leone. This document represents the service I personally performed and the decisions made by me, Manuela Jiménez MD, [facility]. History of Present Illness Service Date and Time: 05/08/2020948 Reason for Visit: New patient Chief Complaint: reports: Insomnia, Unrefreshed sleep, Snoring, Excessive daytime sleepiness, Observed pauses in breathing, Fatigue, Frequent awakenings at night Date of Onset: 3-4 months Usual bedtime: [id number] or [id number] Time it takes to fall asleep: 20 minutes Snores at night: Yes Observed to quit breathing while asleep: Yes Sleeps alone due to snoring: No Number of times waking at night: 2-3 Reasons for waking at night: reports: Choking, Snoring, Gasping for air, Bathroom Toss, Turn, or Twitch while sleeping: Yes Recalls having dreams: Yes Usually gets out of bed at: 0700 Feels refreshed in the morning: No Morning headache: Yes Sleepy or fatigued during the day: Yes Ever fallen asleep while driving: No Takes day naps: No Dreams during day naps: No Prior sleep studies: No Additional HPI information: I had the pleasure of seeing Ms. Spence today regarding the possibility of her having a sleep disorder. As you know, she is a 34 year old lady who complains of insomnia, unrefreshed sleep, loud snore, observed apneas, persistent fatigue, and excessive daytime sleepiness for the past 3 4 months. The patient tells me that she normally goes to bed around 10 - 11 pm, and it takes her approximately 20 minutes to fall asleep. She has been told that she snores loudly and irregularly at night. She has also been observed to stop breathing in her sleep. Her spouse occasionally has to sleep in a separate room. She can recall waking up on the average of 2 - 3 times during the night. Most of the time she wakes up because of her own snoring, choking, and having to gasp for air. There is a lot of tossing and turning in her sleep. No somniloquy (sleep talking) or somnambulism (sleep walking). Generally she can recall having dreams. In the morning she usually gets up out of the bed around 7 a.m. not feeling refreshed nor rested. She usually does have a morning headache that goes away after 1 2 hours. During the day she complains of feeling does not feel leepy and fatigued. Her score on [place] Sleepiness Scale is 5 out of 24. She has never fallen asleep while driving nor has had any accident due to sleepiness. She usually does not take naps during the day. Upon falling asleep during the day she denies having vivid dreams. She has never had sleep paralysis, experienced cataplexy or symptoms of restless leg syndrome. She reports having impaired concentration during the day. Subjective Initial [place] Sleepiness Scale score: 5 (in 2019) Past Medical History Past Medical History: reports: Anxiety, Other (heartburn) Social History The patient's occupation is a [employer]. Patient is and lives in [place]. Have you smoked in the past 12 months: No Alcohol use: Yes Alcohol amount and frequency: 1-2 weekends Caffeine use: Yes Caffeine amount and frequency: 1/day Family History Family history of sleep disordered breathing: Yes Family Hx Sleep Apnea: Other: Sleep apnea - Untreated (aunt and cousins) Allergies and Home Medications Drug allergies reviewed: Yes (NKDA) Home medication list reviewed: Yes (omeprazole) Review of Systems Weight gain over past 5 years: 20 Cardiovascular: denies: high blood pressure, palpitations, chest pain, irregular heart rate or pulse, leg or foot swelling, have to sleep sitting up, other Respiratory: denies: shortness of breath, wheeze, sputum production, chronic cough, other Gastrointestinal: reports: heartburn, diarrhea Urinary: denies: incontinence, frequency, urgency, impotence, other Neurological: reports: headaches Psychiatric: reports: anxiety Ear/Nose/Throat: reports: nasal congestion, sinus problems, nose bleeds, dry mouth/throat, wisdom teeth removed Endocrine: reports: sluggishness, increased appetite Musculoskeletal: reports: joint pain, neck pain, back pain, muscle pain or cramping Immunologic: reports: sneezing, allergies to food or environment Physical Exam Vital signs obtained and entered by: To minimize the risk of COVID-19 exposure, detailed exam was not performed. Height: 5 ft 4 in Weight: 182 lb Body Mass Index: 31.2 BMI Classification: Obese Impression and Plan IMPRESSION: 1. Obstructive Sleep Apnea-Hypopnea Syndrome, as suggested by history of loud and irregular snoring, observed cessation of breath while asleep, frequent awakenings during the night, unrefreshed sleep, morning headache, cognitive impairment, and daytime hypersomnolence. Narrow oropharynx and obesity are common predisposing factors for obstructive sleep apnea-hypopnea syndrome. Pathophysiology of sleep-disordered breathing was discussed. I recommend p roceeding to polysomnography to confirm the diagnosis and to assess severity. If she has significant sleep disordered breathing, a manual CPAP titration study will also be performed to find the optimal treatment pressure. I informed the patient of what the sleep studies involve and after some discussion, she agreed to proceed. Plan: 1. Schedule an in-laboratory polysomnography + manual CPAP titration study. 2. Avoid long distance driving or when feeling sleepy. 3. Avoid alcohol, sedative and muscle relaxant around bedtime. 4. Attempt to lose weight. 5. Return in 1 to 2 weeks after the study to discuss results and initiate therapy Visit Type: In Office Time Spent with Patient (minutes): 15 Provider Statement: I spent 100% of the Face to Face Visit with the patient with greater than 50% spent counseling the patient and coordination of care.
== END 2020-05-08 09:50 | disposition home or self-care (01) ==
LOC: SC 09:49
PROVIDERS: ATTEND Internal Medicine Pulmonary Disease
DX: R06.83 Snoring (principal); R06.81 Apnea, not elsewhere classified; G47.8 Other sleep disorders; R51.9 Headache, unspecified; R41.89 Other symptoms and signs involving cognitive functions and awareness; G47.10 Hypersomnia, unspecified; E66.9 Obesity, unspecified; Z68.31 Body mass index [BMI] 31.0-31.9, adult
CPT/HCPCS: 99203; 99212